=== PATIENT | male | born 1970 ===

== ENCOUNTER 2017-07-07 21:07 | Inpatient (IN) | payer MEDICAID, OTHER ==
[2017-07-07 23:53] LABS: BASO % 0.5 % (0.0-2.0); EOS # 0.2 K/uL (0.0-0.7); EOS % 2.4 % (0.0-4.0); HEMATOCRIT 44.5 % (35.0-51.0); LYMPH # 2.4 K/uL (1.0-4.3); LYMPH % 26.8 % (20.0-40.0); MEAN CORPUSCULAR HEMOGLOBIN 30.4 pg (27.0-31.0); MEAN CORPUSCULAR HGB CONC 33.8 g/dL (33.0-37.0); MEAN PLATELET VOLUME 8.9 fL (7.2-11.7); MONO # 0.3 K/uL (0.0-0.8); MONO % 3.8 % (0.0-10.0); RED CELL DISTRIBUTION WIDTH 13.6 % (11.5-14.5); WHITE BLOOD COUNT 8.8 K/uL (4.8-10.8)
[2017-07-07 23:56] LABS: URINE BILIRUBIN NEGATIVE (NEGATIVE); URINE BLOOD NEGATIVE (NEGATIVE); URINE COLOR Yellow (YELLOW); URINE GLUCOSE (UA) NORMAL (Normal); URINE KETONE NEGATIVE (NEGATIVE); URINE LEUKOCYTE ESTERASE NEG Leu/uL (Negative); URINE PROTEIN NEGATIVE (NEGATIVE); URINE UROBILINOGEN NORMAL mg/dL (0.2-1.0); WBC URINE < 1 /hpf (0-5)
[2017-07-08 00:10] LABS: ALCOHOL SERUM 49 mg/dl (0-10); ALKALINE PHOSPHATASE 95 U/L (38-126); ALT/SGPT 107 U/L (21-72); AST/SGOT 52 U/L (17-59); BILIRUBIN,TOTAL 0.7 mg/dL (0.2-1.3); BLOOD UREA NITROGEN 15 mg/dL (9-20); CALCIUM 8.7 mg/dl (8.6-10.4); CARBON DIOXIDE 24 mmol/L (22-30); CHLORIDE 99 mmol/L (98-107); GFR AFRICAN-AMERICAN > 60; GLUCOSE,RANDOM 96 mg/dL (75-110); POTASSIUM 3.9 mmol/L (3.6-5.2); SODIUM 136 mmol/L (132-148); TOTAL PROTEIN 8.7 g/dL (6.3-8.3)
[2017-07-08 00:23] LABS: ALB/GLOB RATIO 1.2 (1.0-2.1)
--- NOTE | 2017-07-08 01:56 | C.PDOC ---
History Of Present Illness 46 year old male presents to the ER as a prescreen for detox from ETOH, heroin, and xanax, last use was 2 hours ago. Denies physical complaints at this time. Chief Complaint (Nursing): Substance Abuse History Per: Patient History/Exam Limitations: no limitations Onset/Duration Of Symptoms: Days Current Symptoms Are (Timing): Still Present Suicide/Self Injury Attempted (Context): None Modifying Factor(s): Alcohol, Narcotics Associated Symptoms: denies: Depression, Suicidal Thoughts, Suicidal Plan Involuntary Hold By: None Recent travel outside of the [place]: No Past Medical History Reviewed: Historical Data, Nursing Documentation, Vital Signs Vital Signs: Last Vital Signs Temp 98.7 F 07/08/17 01:33 Pulse 92 H 07/08/17 01:33 Resp 22 07/08/17 01:33 BP 128/91 H 07/08/17 01:33 Pulse Ox 98 07/08/17 01:56 - Medical History PMH: Anxiety, HTN Surgical History: No Surg Hx Family History: States: Unknown Family Hx - Social History Hx Alcohol Use: Yes Hx Substance Use: Yes - Immunization History Hx Tetanus Toxoid Vaccination: No Hx Influenza Vaccination: Yes Hx Pneumococcal Vaccination: No Review Of Systems Constitutional: Negative for: Fever, Chills Gastrointestinal: Negative for: Nausea, Vomiting, Diarrhea Physical Exam - Physical Exam Appears: Non-toxic, No Acute Distress Skin: Normal Color, Warm, Dry Head: Atraumatic, Normacephalic Eye(s): bilateral: Normal Inspection Oral Mucosa: Moist Chest: Symmetrical Cardiovascular: Rhythm Regular Respiratory: Normal Breath Sounds, No Rales, No Rhonchi, No Wheezing Gastrointestinal/Abdominal: Soft, No Tenderness Neurological/Psych: Oriented x3, Normal Speech, Other (No focal deficits) ED Course And Treatment - Laboratory Results Result Diagrams: 07/07/17 23:51 07/07/17 23:51 O2 Sat by Pulse Oximetry: 98 (Room air) Pulse Ox Interpretation: Normal Progress Note: Blood work and urinalysis ordered. Crisis notified. Disposition Discussed With : Jh Dean Doctor Will See Patient In The: Hospital Counseled Patient/Family Regarding: Diagnosis - Disposition Disposition: HOSPITALIZED Disposition Time: 01:52 Condition: STABLE - POA Present On Arrival: None - Clinical Impression Clinical Impression: Alcohol use disorder, Opioid abuse - Scribe Statement The provider has reviewed the documentation as recorded by the Scribroshan Raines All medical record entries made by the Patyibroshan were at my direction and personally dictated by me. I have reviewed the chart and agree that the record accurately reflects my personal performance of the history, physical exam, medical decision making, and the department course for this patient. I have also personally directed, reviewed, and agree with the discharge instructions and disposition.
--- NOTE | 2017-07-08 04:37 | PCM.BM ---
<Lenny Lucas - Last Filed: 07/08/17 04:36> Treatment Plan Problems - Problems identified on initial assessmt Alcohol Abuse Date Initiated: 07/08/17 Time Initiated: 03:00 Assessment reference: NA Status: Active Treatment assets and liabiliti Patient Assests: ADL independent, good support system, negotiates basic needs Patient Liabilities: substance abuse (Benzo, heroin, alcohol) - Milieu Protocol Maintain good personal hygiene: daily Encourage regular showers, daily Remind patient to perform daily oral care Conduct patient checks and document Observation sheet: Q15 minutes Maintain personal safety: every shift Educate patient to report safety concerns to staff, every shift Monitor environment for contraband/sharps Medication safety: Monitor for expected outcome, potential side effects: every shift, Assess barriers to learning: every shift, Assess readiness for medication education: every shift <Eusebio Barcenas - Last Filed: 07/08/17 22:52> - Diagnosis (1) Opioid use disorder, severe, dependence Status: Acute Interventions: 07/08/17 22:52 * Assess 7x/week regarding severity of withdrawal * Educate regarding risks, benefits, side effects and alternatives of medications * Use Motivational Interviewing for abstinence * Use CBT for relapse prevention * Medication management for withdrawal symptoms * Encourage medication assisted treatment * (2) Alcohol use disorder Status: Acute Interventions: 07/08/17 22:52 * Assess 7x/week regarding severity of withdrawal * Educate regarding risks, benefits, side effects and alternatives of medications * Use Motivational Interviewing for abstinence * Use CBT for relapse prevention * Medication management for withdrawal symptoms * Encourage medication assisted treatment *
[2017-07-08] MEDS: Multiple Vitamins Tab PO SCH (10:19)
--- NOTE | 2017-07-08 15:46 | PCM.PSYCH ---
Initial Psychiatric Evaluation - Initial Psychiatric Evaluation Type of Admission: Voluntary Legal Status: Capacity Chief Complaint (in patient's own words): "Feeling Good" History of Present Illness and Precipitating Events: Pt is a 46 y/o single male with no children of his own. Pt lives with his girlfriend who has 2 children from another relationship. 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 Pt is here for alcohol and benzodiazepine detox. Pt states that he drinks 1/2 pint of liquor and 2-3 24oz beers daily for the past 2 months. Pt also takes 2-4 mg of Xanax a day for an unspecified amount of time. Pt states that he smokes 10 cigarettes a day and he denied smoking cessation. Pt states that he also uses opioids and he lasted 1g of fentanyl last night and he's been doing that for a couple of years. He experiences withdrawal symptoms when he is not using the fentanyl. However no opioid wdw sxs elicited at this point and he states he gets them late. Past MHX: anxiety, HTN Past Psychiatric HX: denies Family Psychiatric HX: denies Family Substance abuse HX: Uncle "alcoholic" Current Medications: Active Medications Generic Name Dose Route Start Last Admin Trade Name Freq PRN Reason Stop Dose Admin Carvedilol 12.5 mg 07/08/17 10:00 07/08/17 10:18 Coreg PO 12.5 mg BID MAL Administration Chlordiazepoxide 25 mg 07/08/17 10:04 Librium PO Q4H PRN Alcohol Withdrawal Chlordiazepoxide 25 mg 07/08/17 12:00 07/08/17 11:30 Librium PO 07/12/17 11:59 25 mg Q6 MAL Administration Taper Folic Acid 1 mg 07/08/17 10:00 07/08/17 10:19 Folic Acid PO 1 mg DAILY MAL Administration Hydroxyzine HCl 25 mg 07/08/17 03:33 07/08/17 10:18 Atarax PO 25 mg Q6H PRN Administration Anxiety Lisinopril 20 mg 07/08/17 10:00 07/08/17 10:18 Zestril PO 20 mg DAILY MAL Administration Multivitamins 1 tab 07/08/17 10:00 07/08/17 10:19 Hexavitamin PO 1 tab DAILY MAL Administration Nicotine 1 patch 07/08/17 11:30 07/08/17 11:37 Nicoderm Cq TD 1 patch DAILY MAL Administration Pneumococcal Polyvalent Vaccine 0.5 ml 07/10/17 10:00 Pneumovax 23 Vaccine IM 07/10/17 10:01 .ONCE ONE Thiamine HCl 100 mg 07/08/17 10:00 07/08/17 10:19 Vitamin B1 Tab PO 100 mg DAILY MAL Administration Trazodone HCl 50 mg 07/08/17 03:33 Desyrel PO HS PRN Insomnia Past Psychiatric History - Past Psychiatric History Pertinent Medical Hx (Current Medical&Sleep Prob, Allergies): Allergies Allergy/AdvReac Type Severity Reaction Status Date / Time No Known Allergies Allergy Unverified 07/07/17 21:45 Carvedilol 12.5 mg PO BID 07/07/17 Lisinopril 20 mg PO DAILY 07/07/17 Xanax 0.5 mg PO BID 07/07/17 Review of Systems - Neurological Neurological: Weakness - Psychiatric Psychiatric: Abnormal Sleep Pattern, Irritability Mental Status Examination - Personal Presentation Personal Presentation: Looks stated age - Affect Affect: Constricted - Motor Activity Motor Activity: Calm - Reliability in Providing Information Reliability in Providing Information: Good - Speech Speech: Organized - Mood Mood: Depressed - Formal Thought Process Formal Thought Process: No Impairment - Cognitive Functions Orientation: Person, Place, Situation, Time Attention/Concentration: Attentive Judgement: Intact, as evidence by: Insight regarding need for hospitalization Memory: Recent intact, as evidence by: Ability to recall events of the day, Remote intact, as evidenced by: Ability to recall historical events - Risk Risk: Seizure, Withdrawal, Diminished functioning DSM 5 DX - DSM 5 DSM 5 Diagnosis: Alcohol withdrawal Alcohol use d/o- severe Sedative/hypnotic/anxiolytic use d/o-moderate Opioid use d/o-severe - Recommended/Plan of Treatment Treatment Recommendations and Plan of Treatment: Librium detox Meth or SBX detox when he starts to score Gabapentin for augmentation As needed medications Attend groups and activities Supportive therapy and psychoeducation [place] for abstinence CBT for relapse prevention Encourage MAT Refer to rehab or IOP, and self-help groups 33 min Projected ELOS: 4-5 days Prognosis: Good with treatment Discharge Plan and Discharge Criteria: No wdw sxs Refer to IOP - Smoking Cessation Smoking Cessation Initiated: No Reason for not providing: Pt denied
[2017-07-09] MEDS: Multiple Vitamins Tab PO SCH (09:58)
--- NOTE | 2017-07-09 14:04 | PCM.PYCHPN ---
Psychiatric Progress Note - Psychiatric Progress Note Patient seen today, length of contact: 17 min Patient Chief Complaint: "Feeling good, only got up once last night" Problems Identified/Issues Discussed: The pt is seen, chart reviewed, case discussed with staff. Pt stated that he he is experiencing alcohol withdrawal symptoms but no withdrawal symptoms from the fentanyl The pt is compliant with medications and reports no side-effects. Symptoms are improving but needs more time to stabilize. After care discussed, support and psychoeducation given. Pt plans to get in contact with a rehab program in [place] associated with [facility] Medication Change: Yes (detox changes daily) Medical Record Reviewed: Yes Mental Status Examination - Cognitive Function Orientation: Person, Place, Situation, Time Memory: Intact Attention: WNL Concentration: WNL Association: WNL Fund of Knowledge: WNL - Mood Mood: Neutral - Affect Affect: Broad - Speech Speech: Appropriate - Formal Thought Process Formal Thought Process: No Impairment - Suicidal Ideation Suicidal Ideation: No - Homicidal Ideation Homicidal Ideation: No Goal/Treatment Plan - Goal/Treatment Plan Need for Continued Stay: Discharge may exacerbated symptoms, Severe functional impairment Progress Toward Problem(s) and Goals/Treatment Plan: Librium detox Meth or SBX detox when he starts to score Gabapentin for augmentation As needed medications Attend groups and activities Supportive therapy and psychoeducation [place] for abstinence CBT for relapse prevention Encourage MAT Refer to rehab or IOP, and self-help groups Follow up with patient about plan to attend Rehab at [facility] Discuss other options for IOP other than [facility]
[2017-07-10] MEDS: Multiple Vitamins Tab PO SCH (09:44)
[2017-07-10] MEDS ORDERED: Pneumococcal 23-Valent Vaccine IM ONE (10:00)
--- NOTE | 2017-07-10 14:23 | PCM.PYCHPN ---
Psychiatric Progress Note - Psychiatric Progress Note Patient seen today, length of contact: 17 min Patient Chief Complaint: "I feel great and I slept throughout the night" Problems Identified/Issues Discussed: The pt is seen, chart reviewed, case discussed with staff. Pt is not exeriencing any wdw sxs and is in good spirits about getting clean The pt is compliant with medications and reports no side-effects. Symptoms are improving but needs more time to stabilize. After care discussed, support and psychoeducation given. Pt stated that he spoke to [facility] in [place] and plans to go to an IOP there Medication Change: Yes (Librium Taper) Medical Record Reviewed: Yes Mental Status Examination - Cognitive Function Orientation: Person, Place, Situation, Time Memory: Intact Attention: WNL Concentration: WNL Association: WNL Fund of Knowledge: WNL - Mood Mood: Neutral - Affect Affect: Broad - Speech Speech: Appropriate - Formal Thought Process Formal Thought Process: No Impairment - Suicidal Ideation Suicidal Ideation: No - Homicidal Ideation Homicidal Ideation: No Goal/Treatment Plan - Goal/Treatment Plan Need for Continued Stay: Discharge may exacerbated symptoms, Severe functional impairment Progress Toward Problem(s) and Goals/Treatment Plan: Librium detox Meth or SBX detox when he starts to score Gabapentin for augmentation As needed medications Attend groups and activities Supportive therapy and psychoeducation [place] for abstinence CBT for relapse prevention Encourage MAT Refer to rehab or IOP, and self-help groups Pt spoke to [facility] and plans to attend an IOP in the area FOllow-up with the patient about his D/C plan and Transportation
[2017-07-10 19:51] VITALS: O2SAT 99
[2017-07-10] MEDS ORDERED: Aluminum Hydroxide/Magnesium Hydroxide Susp (30 mL) PO PRN (22:01)
--- NOTE | 2017-07-11 07:29 | PCM.PYCHPN ---
Psychiatric Progress Note - Psychiatric Progress Note Patient seen today, length of contact: 17 min Medication Change: Yes (Librium Taper) Medical Record Reviewed: Yes Mental Status Examination - Cognitive Function Orientation: Person, Place, Situation, Time Memory: Intact Attention: WNL Concentration: WNL Association: WNL Fund of Knowledge: WNL - Mood Mood: Neutral - Affect Affect: Broad - Speech Speech: Appropriate - Formal Thought Process Formal Thought Process: No Impairment - Suicidal Ideation Suicidal Ideation: No - Homicidal Ideation Homicidal Ideation: No Goal/Treatment Plan - Goal/Treatment Plan Need for Continued Stay: Discharge may exacerbated symptoms, Severe functional impairment
--- NOTE | 2017-07-11 08:04 | PCM.PYCHDC ---
Mental Status Examination - Mental Status Examination Orientation: Person, Place, Situation, Time Memory: Intact Mood: Neutral Affect: Constricted Speech: Soft Attention: WNL Concentration: WNL Association: WNL Fund of Knowledge: WNL Formal Thought Process: No Impairment Description of patient's judgement and insight: good, fair Psychotic Thoughts and Behaviors: denies any AVH Suicidal Ideation: No Current Homicidal Ideation?: No Discharge Summary - Discharge Note Reason for Hospitalization: Pt is a 46 y/o single male with no children of his own. Pt lives with his girlfriend who has 2 children from another relationship. 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 Pt is here for alcohol and benzodiazepine detox. Pt states that he drinks 1/2 pint of liquor and 2-3 24oz beers daily for the past 2 months. Pt also takes 2-4 mg of Xanax a day for an unspecified amount of time. Pt states that he smokes 10 cigarettes a day and he denied smoking cessation. Pt states that he also uses opioids and he lasted 1g of fentanyl last night and he's been doing that for a couple of years. He experiences withdrawal symptoms when he is not using the fentanyl. However no opioid wdw sxs elicited at this point and he states he gets them late. Consultations:: List each consultation separately and include: 1. Reason for request. 2. Findings. 3. Follow-up Summary of Hospital Course include:: 1. Description of specific treatment plan utilized for patients during their course of treatmen. 2. Summarize the time- course for resolution of acute symptoms and/or regressed behaviors. 3. Describe issues identified and worked on during hospitalization. 4. Describe medication utilized. 5. Describe medical problems identified and treated. 6. Reassessment of suicide risk - Final Diagnosis (DSM 5) Condition upon Discharge: STABLE DSM 5: Alcohol withdrawal Alcohol use d/o- severe Sedative/hypnotic/anxiolytic use d/o-moderate Opioid use d/o-severe Disposition: HOME/ ROUTINE Prescriptions/Medication Reconciliation: Gabapentin [Neurontin] 300 mg PO BID #60 cap traZODone [Desyrel] 50 mg PO HS PRN #30 tab PRN Reason: Insomnia
[2017-07-11] MEDS: Multiple Vitamins Tab PO SCH (09:11)
[2017-07-11 09:14] VITALS: BP 122/84
[2017-07-11 11:41] VITALS: PULSE 64; RESP 19; TEMP 99.8
== END 2017-07-11 11:00 | disposition home or self-care (01) | DRG 745 ==
LOC: C.ER 21:07 → C.7D 07-08 01:56
PROVIDERS: ADMIT Psychiatry & Neurology Psychiatry; ATTEND Psychiatry & Neurology Psychiatry
PROC: HZ2ZZZZ Detoxification Services for Substance Abuse Treatment (ICD-10-PCS; principal; 2017-07-08)
PROC: HZ46ZZZ Group Counseling for Substance Abuse Treatment, Psychoeducation (ICD-10-PCS; 2017-07-08)
PROC: HZ59ZZZ Individual Psychotherapy for Substance Abuse Treatment, Supportive (ICD-10-PCS; 2017-07-08)
DX: F10.230 Alcohol dependence with withdrawal, uncomplicated (principal); F11.20 Opioid dependence, uncomplicated; F41.9 Anxiety disorder, unspecified; I10 Essential (primary) hypertension; F13.10 Sedative, hypnotic or anxiolytic abuse, uncomplicated; F17.210 Nicotine dependence, cigarettes, uncomplicated

== ENCOUNTER 2018-08-28 14:23 | Inpatient (IN) | payer MEDICAID, OTHER ==
[2018-08-28 15:00] LABS: BASO # 0.1 K/uL (0.0-0.2); BASO % 1.4 % (0.0-2.0); EOS # 0.4 K/uL (0.0-0.7); EOS % 6.4 % (0.0-4.0); LYMPH # 1.5 K/uL (1.0-4.3); LYMPH % 26.7 % (20.0-40.0); MEAN CELL VOLUME 95.3 fL (80.0-94.0); MEAN CORPUSCULAR HGB CONC 34.6 g/dL (33.0-37.0); MEAN PLATELET VOLUME 7.7 fL (7.2-11.7); MONO # 0.4 K/uL (0.0-0.8); MONO % 7.4 % (0.0-10.0); NEUT # 3.2 K/uL (1.8-7.0); NEUT % 58.1 % (50.0-75.0); NRBC % 0.1 % (0.0-2.0); RBC 4.25 Mil/uL (4.40-5.90); RED CELL DISTRIBUTION WIDTH 15.8 % (11.5-14.5); WHITE BLOOD COUNT 5.5 K/uL (4.8-10.8)
[2018-08-28 15:18] LABS: ALB/GLOB RATIO 1.4 (1.0-2.1); ALBUMIN 4.7 g/dL (3.5-5.0); ALT/SGPT 126 U/L (21-72); AST/SGOT 160 U/L (17-59); BLOOD UREA NITROGEN 13 mg/dL (9-20); CALCIUM 8.9 mg/dl (8.6-10.4); GFR NON-AFRICAN AMERICAN > 60
--- NOTE | 2018-08-28 16:09 | C.PDOC ---
History Of Present Illness 47 year old male with a history of hypertension presents to the ED for pre- screen for detox from fentany, ETOH, and xanax. The patient reports his last detox attempt was in 2016. Admits his last use of fentanyl was last night and la st ETOH consumption was today in the morning. He is intermittently compliant with his hypertension medication. Offers no medical complaints at this time. Denies fever, chills, and any other associated symptoms. Time Seen by Provider: 08/28/18 14:26 Chief Complaint (Nursing): Substance Abuse History Per: Patient History/Exam Limitations: no limitations Recent travel outside of the [place]: No Past Medical History Reviewed: Historical Data, Nursing Documentation, Vital Signs Vital Signs: Last Vital Signs Temp 98.5 F 08/28/18 14:31 Pulse 91 H 08/28/18 14:31 Resp 16 08/28/18 14:31 BP 146/91 H 08/28/18 14:31 Pulse Ox 96 08/28/18 14:31 - Medical History PMH: Anxiety, HTN Denies: Diabetes, Hepatitis, HIV, Seizures, Sexually Transmitted Disease - [facility] Procedures DETOXIFICATION SERVICES FOR SUBSTANCE ABUSE TREATMENT (07/08/17) GROUP MANAGER CRITICAL CARE FOR SUBSTANCE ABUSE TREATMENT, PSYCHOEDUCATION (07/08/17) INDIV PSYCHOTHERAPY FOR SUBSTANCE ABUSE TREATMENT, SUPPORT (07/08/17) Family History: States: Unknown Family Hx - Social History Hx Alcohol Use: Yes Hx Substance Use: Yes - Immunization History Hx Tetanus Toxoid Vaccination: No Hx Influenza Vaccination: Yes Hx Pneumococcal Vaccination: No Review Of Systems Except As Marked, All Systems Reviewed And Found Negative. Constitutional: Positive for: Other (detox). Negative for: Fever, Chills Physical Exam - Physical Exam Appears: No Acute Distress, Other (ambulatory. ) Skin: Normal Color, Warm, Dry Head: Atraumatic, Normacephalic Eye(s): bilateral: Normal Inspection Oral Mucosa: Moist Chest: Symmetrical Cardiovascular: Rhythm Regular, No Murmur Respiratory: Normal Breath Sounds, No Rales, No Rhonchi, No Wheezing Gastrointestinal/Abdominal: Normal Exam, Soft, No Tenderness Extremity: Bilateral: Atraumatic, Normal Color And Temperature, Normal ROM Neurological/Psych: Oriented x3, No Normal Speech (slurred speech.), Normal Cognition ED Course And Treatment - Laboratory Results Result Diagrams: 08/28/18 14:57 08/28/18 14:57 Lab Results: Total Bilirubin 0.7 mg/dL (0.2-1.3) 08/28/18 14:57 AST 160 U/L (17-59) H D 08/28/18 14:57 ALT 126 U/L (21-72) H 08/28/18 14:57 Alkaline Phosphatase 246 U/L (38-126) H D 08/28/18 14:57 Total Protein 8.0 g/dL (6.3-8.3) 08/28/18 14:57 Albumin 4.7 g/dL (3.5-5.0) 08/28/18 14:57 Globulin 3.3 gm/dL (2.2-3.9) 08/28/18 14:57 Albumin/Globulin Ratio 1.4 (1.0-2.1) 08/28/18 14:57 Lab Interpretation: Abnormal (Elevated LFTs, ETOH 260, UDS + benzos, cannabis) O2 Sat by Pulse Oximetry: 96 (RA) Pulse Ox Interpretation: Normal Progress Note: Patient is medically cleared for detox admission. Medical Decision Making Medical Decision Making: Initial plan: -Blood sent. -Urinalysis. Disposition - Disposition Disposition: HOSPITALIZED Disposition Time: 18:38 Condition: STABLE - POA Present On Arrival: None - Clinical Impression Clinical Impression: Opioid use disorder, severe, dependence, Alcohol use disorder - Scribe Statement The provider has reviewed the documentation as recorded by the Scribe (Nevaeh Hernandez) Provider Attestation: All medical record entries made by the Scribe were at my direction and personally dictated by me. I have reviewed the chart and agree that the record accurately reflects my personal performance of the history, physical exam, medical decision making, and the department course for this patient. I have also personally directed, reviewed, and agree with the discharge instructions and disposition.
[2018-08-28 16:32] LABS: URINE BILIRUBIN NEGATIVE (NEGATIVE); URINE BLOOD NEGATIVE (NEGATIVE); URINE CLARITY Clear (Clear); URINE COLOR Straw (YELLOW); URINE GLUCOSE (UA) NORMAL (Normal); URINE LEUKOCYTE ESTERASE NEG Leu/uL (Negative); URINE PROTEIN NEGATIVE (NEGATIVE); URINE UROBILINOGEN NORMAL mg/dL (0.2-1.0)
[2018-08-28 16:47] LABS: BARBITURATES, UR NEGATIVE (NEGATIVE); OPIATES, UR NEGATIVE (NEGATIVE); PHENCYCLIDINE, UR NEGATIVE (NEGATIVE)
[2018-08-28 16:48] LABS: BENZODIAZEPINES, UR POSITIVE (NEGATIVE)
--- NOTE | 2018-08-28 18:58 | PCM.BM ---
<Jessica Paul - Last Filed: 08/28/18 18:57> Treatment Plan Problems - Problems identified on initial assessmt low self esteem Date Initiated: 08/28/18 Time Initiated: 18:58 Assessment reference: NA Status: Active low modivation to change Date Initiated: 08/28/18 Time Initiated: 18:58 Assessment reference: NA Status: Active denial Date Initiated: 08/28/18 Time Initiated: 18:58 Assessment reference: NA Status: Active Treatment assets and liabiliti Patient Assests: ADL independent, good support system, negotiates basic needs <Eusebio Barcenas - Last Filed: 08/31/18 13:10> - Diagnosis (1) Alcohol use disorder Status: Acute Interventions: 08/30/18 13:10 * Assess 7x/week regarding severity of withdrawal * Educate regarding risks, benefits, side effects and alternatives of medications * Use Motivational Interviewing for abstinence * Use CBT for relapse prevention * Medication management for withdrawal symptoms * Encourage medication assisted treatment * (2) Opioid use disorder, severe, dependence Status: Acute Interventions: 08/30/18 13:10 * Assess 7x/week regarding severity of withdrawal * Educate regarding risks, benefits, side effects and alternatives of medications * Use Motivational Interviewing for abstinence * Use CBT for relapse prevention * Medication management for withdrawal symptoms * Encourage medication assisted treatment * <Kiley Tenorio - Last Filed: 08/31/18 14:57> Family Contact Family involvement: Famliy/SO not involved - Goals for Treatment Patient goals for treatment: Complete detox and transition to MAT with oral Naltrexone. Discharge/Continuing Care - Education Needs Education Needs: Patient Medication, Patient Diagnosis/Disease Process, Patient Coping Skills, Patient Anger Management skills, Patient Placement options, Patient Community resources - Discharge Discharge Criteria: No longer exhibiting s/s of withdrawal, Reduction of target symptoms Discharge to:: Home - Treatment Team Participation Patient/Family/SO Statement: 08/31/18 14:57 "I don't want the Naltrexone shot but I'll try the pill." Discussed with Family/SO: No Was Patient/Family/SO present at Treatment Team Meeting: Yes
[2018-08-29] MEDS: Multiple Vitamins Tab PO SCH (10:02)
--- NOTE | 2018-08-29 13:29 | PCM.PSYCH ---
Initial Psychiatric Evaluation - Initial Psychiatric Evaluation Type of Admission: Voluntary Legal Status: Capacity Chief Complaint (in patient's own words): I am drinking a lot. 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 Patient denies any past history of any inpatient psychiatric hospitalizations, however he reports history of few detoxes in the past. As per the patient, his last detox was at [facility] in 2017. After that he remained sober for a few months but then he relapsed. He reports a long history of drinking and abusing fentanyl. He reports that he is drinking up to 1 liter of vodka daily. His last drink was yesterday. He also reports of abusing up to 1 g of fentanyl daily, last abuse was more than a day ago. Also reports of using Xanax up to 2 mg daily last abuse was more than a day ago. Patient reports withdrawal symptoms including anxiety, headaches, and sweating. He reports irritable mood but denies any feelings of hopelessness or helplessness. He denies any suicidal ideation or any homicidal ideation. He denies any auditory or visual hallucinations or any paranoia. Past medical history HTN, heart disease? Current Medications: Active Medications Generic Name Dose Route Start Last Admin Trade Name Freq PRN Reason Stop Dose Admin Clonidine HCl 0.1 mg 08/28/18 19:28 Catapres PO Q4H PRN Symptoms of alcohol withdrawl Folic Acid 1 mg 08/29/18 10:00 08/29/18 10:02 Folic Acid PO 1 mg DAILY MAL Administration Lorazepam 2 mg 08/28/18 19:30 08/29/18 12:53 Ativan PO 09/02/18 19:29 Not Given Q4 MAL Taper Lorazepam 1 mg 08/28/18 19:28 08/28/18 22:20 Ativan PO 1 mg Q4H PRN Administration Symptoms of alcohol withdrawl Multivitamins 1 tab 08/29/18 10:00 08/29/18 10:02 Hexavitamin PO 1 tab DAILY MAL Administration Thiamine HCl 100 mg 08/29/18 10:00 08/29/18 10:02 Vitamin B1 Tab PO 100 mg DAILY MAL Administration Trazodone HCl 50 mg 08/28/18 19:28 08/28/18 21:55 Desyrel PO 50 mg HS PRN Administration Insomnia Past Psychiatric History - Past Psychiatric History Previous Treatment History: Inpatient Pertinent Medical Hx (Current Medical&Sleep Prob, Allergies): Allergies Allergy/AdvReac Type Severity Reaction Status Date / Time No Known Allergies Allergy Verified 08/29/18 02:14 Carvedilol [Coreg] 12.5 mg PO BID tab 07/10/17 Gabapentin [Neurontin] 300 mg PO BID #60 cap 07/10/17 Lisinopril [Zestril] 20 mg PO DAILY tab 07/10/17 traZODone [Desyrel] 50 mg PO HS PRN #30 tab 07/10/17 Review of Systems - Review of Systems All systems: reviewed and no additional remarkable complaints except - Psychiatric Psychiatric: Anxiety, Irritability. absent: Suicidal Ideation Mental Status Examination - Personal Presentation Personal Presentation: Looks stated age - Affect Affect: Constricted - Motor Activity Motor Activity: Calm - Reliability in Providing Information Reliability in Providing Information: Fair - Speech Speech: Organized - Mood Mood: Anxious - Formal Thought Process Formal Thought Process: No Impairment - Obsessions/Compulsions Obsessions: No Compulsions: No (Review of the) - Cognitive Functions Orientation: Person, Place, Situation, Time Sensorium: Alert Attention/Concentration: Attentive Abstract Thinking: [place] Estimate of Intelligence: Below average Judgement: Imparied, as evidence by: Poor judgement, Intact, as evidence by: Insight regarding need for hospitalization - Risk Risk: Withdrawal, Diminished functioning - Strength & Assets Inventory Strength & Assets Inventory: Family support DSM 5 DX - DSM 5 DSM 5 Diagnosis: Alcohol use disorder severe Alcohol withdrawal Opioid use disorder severe Opioid withdrawal Depressive disorder - Recommended/Plan of Treatment Treatment Recommendations and Plan of Treatment: Alcohol use disorder severe Alcohol withdrawal Opioid use disorder severe Opioid withdrawal Depressive disorder Psychoeducation Supportive therapy and group therapy Ativan taper -due to high LFTs Neurontin 300 mg p.o. 2 times daily Lisinopril 20 mg p.o. daily Trazodone 50 mg p.o. nightly Carvedilol 12.5 mg p.o. twice a day Withdrawal medications - Smoking Cessation Smoking Cessation Initiated: No
[2018-08-30] MEDS: Multiple Vitamins Tab PO SCH (09:34)
--- NOTE | 2018-08-30 10:23 | PCM.PYCHPN ---
Psychiatric Progress Note - Psychiatric Progress Note Patient seen today, length of contact: 18 min Patient Chief Complaint: "I'm starting to withdraw soon" Problems Identified/Issues Discussed: The pt is seen, chart reviewed, case discussed with staff. The pt is compliant with medications and reports no side-effects. Symptoms are improving but needs more time to stabilize. Pt attends groups and activities. Support given, psycho-education provided. After care discussed. Medication Change: Yes (detox changes daily) Medical Record Reviewed: Yes Mental Status Examination - Cognitive Function Orientation: Person, Place, Situation, Time Memory: Intact Attention: WNL Concentration: Poor Association: WNL Fund of Knowledge: WNL - Mood Mood: Anxious - Affect Affect: Constricted - Speech Speech: Appropriate - Formal Thought Process Formal Thought Process: No Impairment - Suicidal Ideation Suicidal Ideation: No - Homicidal Ideation Homicidal Ideation: No Goal/Treatment Plan - Goal/Treatment Plan Need for Continued Stay: Discharge may exacerbated symptoms, Severe functional impairment Progress Toward Problem(s) and Goals/Treatment Plan: Start methadone when he is more in withdrawal - Has been using Fentanyl and gets into wdw "late" he says Continue medications Support and psychoeducation daily Attend groups and activities daily After care planning by counselors
[2018-08-31] MEDS: Multiple Vitamins Tab PO SCH (09:35)
--- NOTE | 2018-08-31 13:48 | PCM.PYCHPN ---
Psychiatric Progress Note - Psychiatric Progress Note Patient seen today, length of contact: 15 min Patient Chief Complaint: "I'm withdrawing" Problems Identified/Issues Discussed: The pt is seen, chart reviewed, case discussed with staff. Pt still complains of withdrawal symptoms and reports that he is feeling down, however he does state he is doing much better than he was since arrival. He was given methadone 10 mg today. He was using Fentanyl and even kratom which don't show in urine. COWS was 10 Support and psychoeducation given, CBT and SC used briefly No new symptoms reported, improving slowly and needs more time No SEs from medications, risks discussed. After care discussed Medication Change: Yes (detox changes daily) Medical Record Reviewed: Yes Mental Status Examination - Cognitive Function Orientation: Person, Place, Situation, Time Memory: Intact Attention: WNL Concentration: Poor Association: WNL Fund of Knowledge: WNL - Mood Mood: Anxious - Affect Affect: Constricted - Speech Speech: Appropriate - Formal Thought Process Formal Thought Process: No Impairment - Suicidal Ideation Suicidal Ideation: No - Homicidal Ideation Homicidal Ideation: No Goal/Treatment Plan - Goal/Treatment Plan Need for Continued Stay: Discharge may exacerbated symptoms, Severe functional impairment Progress Toward Problem(s) and Goals/Treatment Plan: Continue medications, incl methadone Support and psychoeducation daily Attend groups and activities daily After care planning by counselors
[2018-09-01] MEDS: Multiple Vitamins Tab PO SCH (09:49)
[2018-09-01 11:17] VITALS: RESP 18
--- NOTE | 2018-09-01 13:45 | PCM.PYCHPN ---
Psychiatric Progress Note - Psychiatric Progress Note Patient seen today, length of contact: 15 min Patient Chief Complaint: "I'm a little better" Problems Identified/Issues Discussed: The pt is seen, chart reviewed, case is discussed with staff. Support and psychoeducation given, CBT and PA used briefly The pt is improving slowly but needs more time due to severity of symptoms and relapse risk. No SEs from medications, risks discussed. After care discussed Medication Change: Yes (detox changes daily) Medical Record Reviewed: Yes Mental Status Examination - Cognitive Function Orientation: Person, Place, Situation, Time Memory: Intact Attention: WNL Concentration: Poor Association: WNL Fund of Knowledge: WNL - Mood Mood: Anxious - Affect Affect: Constricted - Speech Speech: Appropriate - Formal Thought Process Formal Thought Process: No Impairment - Suicidal Ideation Suicidal Ideation: No - Homicidal Ideation Homicidal Ideation: No Goal/Treatment Plan - Goal/Treatment Plan Need for Continued Stay: Discharge may exacerbated symptoms, Severe functional impairment Progress Toward Problem(s) and Goals/Treatment Plan: Continue medications, incl methadone Support and psychoeducation daily Attend groups and activities daily After care planning by counselors Estimated Date of D/C: 09/02/18
[2018-09-02 05:20] VITALS: O2SAT 97
[2018-09-02] MEDS: Multiple Vitamins Tab PO SCH (10:03)
[2018-09-02 10:05] VITALS: BP 129/90
[2018-09-02 10:34] VITALS: PULSE 90; TEMP 97.6
--- NOTE | 2018-09-02 11:37 | PCM.PYCHDC ---
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 Patient denies any past history of any inpatient psychiatric hospitalizations, however he reports history of few detoxes in the past. As per the patient, his last detox was at [facility] in 2017. After that he remained sober for a few months but then he relapsed. He reports a long history of drinking and abusing fentanyl. He reports that he is drinking up to 1 liter of vodka daily. His last drink was yesterday. He also reports of abusing up to 1 g of fentanyl daily, last abuse was more than a day ago. Also reports of using Xanax up to 2 mg daily last abuse was more than a day ago. Patient reports withdrawal symptoms including anxiety, headaches, and sweating. He reports irritable mood but denies any feelings of hopelessness or helplessness. He denies any suicidal ideation or any homicidal ideation. He denies any auditory or visual hallucinations or any paranoia. Consultations:: List each consultation separately and include: 1. Reason for request. 2. Findings. 3. Follow-up Summary of Hospital Course include:: 1. Description of specific treatment plan utilized for patients during their course of treatmen. 2. Summarize the time- course for resolution of acute symptoms and/or regressed behaviors. 3. Describe issues identified and worked on during hospitalization. 4. Describe medication utilized. 5. Describe medical problems identified and treated. 6. Reassessment of suicide risk Summary of Hospital Course: During the course of his stay, patient (pt) started progressively improving and no longer remained irritable, and anxious. His mood and anxiety were improved and he started attending groups and meetings and started socializing. Patient denied any feelings of hopelessness, helplessness, and worthlessness, denied any problem with the sleep or appetite, denied suicidal ideation or homicidal ideation. Pt denied any auditory or visual hallucinations. He denied any withdrawal symptoms. Pt was treated with medications along with supportive therapy, milieu therapy and group therapy. Some changes were made in his current medications and patient was discharged on following medications. He tolerated these medications very well and denied any side effects. - Final Diagnosis (DSM 5) Condition upon Discharge: STABLE DSM 5: Alcohol use disorder severe Alcohol withdrawal Opioid use disorder severe Opioid withdrawal Depressive disorder Disposition: HOME/ ROUTINE Follow-up Treatment Plan: Education: Pt was educated and counseled about the risks and benefits of taking and not taking medications. Pt was educated and counseled about the risks of drinking and abusing drugs. Pt was educated and counseled to go to the ER or call 911 if pt develop suicidal ideation or homicidal ideation, worsening of symptoms or severe side effects of the meds. Prescriptions/Medication Reconciliation: Carvedilol [Coreg] 12.5 mg PO BID #60 tab Gabapentin [Neurontin] 300 mg PO TID #90 cap hydrOXYzine HCl [Atarax] 50 mg PO BID PRN #60 tab PRN Reason: Anxiety Lisinopril [Zestril] 20 mg PO DAILY #30 tab QUEtiapine [Seroquel] 100 mg PO HS #30 tab - Smoking Cessation Smoking Cessation Medication prescribed: No - Antipsychotic Medications Pt discharged on 2 or more routine antipsychotic medications: No
== END 2018-09-02 12:15 | disposition home or self-care (01) | DRG 745 ==
LOC: C.ER 14:23 → C.9E 18:37 → C.7D 18:46
PROVIDERS: ADMIT Psychiatry & Neurology Psychiatry; ATTEND Psychiatry & Neurology Psychiatry
PROC: HZ2ZZZZ Detoxification Services for Substance Abuse Treatment (ICD-10-PCS; principal; 2018-08-28)
PROC: HZ59ZZZ Individual Psychotherapy for Substance Abuse Treatment, Supportive (ICD-10-PCS; 2018-08-28)
PROC: GZ3ZZZZ Medication Management (ICD-10-PCS; 2018-08-28)
PROC: HZ46ZZZ Group Counseling for Substance Abuse Treatment, Psychoeducation (ICD-10-PCS; 2018-08-28)
DX: F10.230 Alcohol dependence with withdrawal, uncomplicated (principal); F11.23 Opioid dependence with withdrawal; F32.9 Major depressive disorder, single episode, unspecified; F41.9 Anxiety disorder, unspecified; I10 Essential (primary) hypertension

== ENCOUNTER 2018-10-05 18:19 | Inpatient (IN) | payer OTHER ==
--- NOTE | 2018-10-05 19:06 | C.PDOC ---
History Of Present Illness 47 y/o male presents to the ED requesting detox. Admits to using fentanyl, xanax, and alcohol. Last drink was this afternoon, last fentanyl and xanax this morning. Patient denies any fever or other complaints. He also denies any SI or HI. Time Seen by Provider: 10/05/18 18:41 Chief Complaint (Nursing): Substance Abuse History Per: Patient History/Exam Limitations: no limitations Onset/Duration Of Symptoms: Days Current Symptoms Are (Timing): Still Present Suicide/Self Injury Attempted (Context): None Modifying Factor(s): Alcohol, Other (Fentanyl, Xanax) Associated Symptoms: denies: Suicidal Thoughts, Suicidal Plan Past Medical History Reviewed: Historical Data, Nursing Documentation, Vital Signs Vital Signs: Last Vital Signs Temp 98.4 F 10/05/18 18:21 Pulse 113 H 10/05/18 18:21 Resp 20 10/05/18 18:21 BP 157/108 H 10/05/18 18:21 Pulse Ox 97 10/05/18 18:21 - Medical History PMH: Anxiety, Depression, HTN Denies: Diabetes, Hepatitis, HIV, Seizures, Sexually Transmitted Disease - [facility] Procedures DETOXIFICATION SERVICES FOR SUBSTANCE ABUSE TREATMENT (08/28/18) GROUP INSPECTOR WATCH TRAIN FOR SUBSTANCE ABUSE TREATMENT, PSYCHOEDUCATION (08/28/18) INDIV PSYCHOTHERAPY FOR SUBSTANCE ABUSE TREATMENT, SUPPORT (08/28/18) MEDICATION MANAGEMENT (08/28/18) Family History: States: Unknown Family Hx - Social History Hx Alcohol Use: Yes Hx Substance Use: Yes - Immunization History Hx Tetanus Toxoid Vaccination: No Hx Influenza Vaccination: Yes (07/2018) Hx Pneumococcal Vaccination: No Review Of Systems Except As Marked, All Systems Reviewed And Found Negative. Constitutional: Negative for: Fever, Chills Cardiovascular: Negative for: Chest Pain Respiratory: Negative for: Shortness of Breath Gastrointestinal: Negative for: Vomiting, Abdominal Pain Musculoskeletal: Negative for: Back Pain, Other (Tremors) Neurological: Negative for: Weakness, Numbness Psych: Positive for: Other (Substance abuse, Alcohol abuse). Negative for: Suicidal ideation (or homicidal) Physical Exam - Physical Exam Appears: Non-toxic, No Acute Distress Skin: Normal Color, Warm Head: Atraumatic, Normacephalic Eye(s): bilateral: Normal Inspection, PERRL, EOMI Neck: Normal ROM Chest: Symmetrical Cardiovascular: Rhythm Regular, No Murmur Respiratory: Normal Breath Sounds, No Accessory Muscle Use Gastrointestinal/Abdominal: Soft, No Tenderness, No Distention Extremity: Bilateral: Atraumatic, Normal Color And Temperature, Other (No tremors noted) Neurological/Psych: Oriented x3, Normal Speech ED Course And Treatment - Laboratory Results Result Diagrams: 10/05/18 19:08 10/05/18 19:08 O2 Sat by Pulse Oximetry: 97 (RA) Pulse Ox Interpretation: Normal Medical Decision Making Medical Decision Making: pending medical clearnace Initial Plan: Labs ordered for medical clearance. Crisis to speak to patient and evaluate for detox. labsshow abnromal lfts suspect 2/2 etoh use. abd soft in er no ttp. medically cleared Disposition - Disposition Disposition: HOSPITALIZED Disposition Time: 12:00 Condition: GOOD - Clinical Impression Clinical Impression: Abnormal LFTs, Alcohol abuse - Scribe Statement The provider has reviewed the documentation as recorded by the Cathryn Mayo Provider Attestation: All medical record entries made by the Patyibroshan were at my direction and personally dictated by me. I have reviewed the chart and agree that the record accurately reflects my personal performance of the history, physical exam, medical decision making, and the department course for this patient. I have also personally directed, reviewed, and agree with the discharge instructions and disposition. Decision To Admit - Pt Status Changed To: Hospital Disposition Of: Inpatient - Admit Certification Admit to Inpatient:: After my assessment, the patient will require hospitalization for at least two midnights. This is because of the severity of symptoms shown, intensity of services needed, and/or the medical risk in this patient being treated as an outpatient. - InPatient: Physician Admission Certification: I certify that this patient requires 2 or more midnights of care for the following reason:: needs detox - . Bed Request Type: Detox Admitting Physician: Eusebio Barcenas Patient Diagnosis: Abnormal LFTs, Alcohol abuse
[2018-10-05 19:11] LABS: BASO % 0.9 % (0.0-2.0); EOS # 0.1 K/uL (0.0-0.7); EOS % 0.9 % (0.0-4.0); HEMOGLOBIN 14.2 g/dL (12.0-18.0); LYMPH # 0.8 K/uL (1.0-4.3); LYMPH % 14.9 % (20.0-40.0); MEAN CELL VOLUME 98.3 fL (80.0-94.0); MEAN CORPUSCULAR HEMOGLOBIN 32.6 pg (27.0-31.0); MEAN CORPUSCULAR HGB CONC 33.2 g/dL (33.0-37.0); MEAN PLATELET VOLUME 8.8 fL (7.2-11.7); MONO # 0.5 K/uL (0.0-0.8); MONO % 8.5 % (0.0-10.0); NEUT # 4.2 K/uL (1.8-7.0); NEUT % 74.8 % (50.0-75.0); RBC 4.36 Mil/uL (4.40-5.90); RED CELL DISTRIBUTION WIDTH 15.2 % (11.5-14.5); WHITE BLOOD COUNT 5.6 K/uL (4.8-10.8)
[2018-10-05 19:30] LABS: ALB/GLOB RATIO 1.6 (1.0-2.1); ALBUMIN 5.3 g/dL (3.5-5.0); ALT/SGPT 602 U/L (21-72); AST/SGOT 532 U/L (17-59); BLOOD UREA NITROGEN 12 mg/dL (9-20); CALCIUM 9.6 mg/dl (8.6-10.4); GFR NON-AFRICAN AMERICAN > 60
[2018-10-05 23:19] LABS: URINE BACTERIA OCC (<OCC); URINE BILIRUBIN NEGATIVE (NEGATIVE); URINE BLOOD NEGATIVE (NEGATIVE); URINE CLARITY Hazy (Clear); URINE COLOR Amber (YELLOW); URINE GLUCOSE (UA) NORMAL (Normal); URINE LEUKOCYTE ESTERASE TRACE Leu/uL (Negative); URINE PROTEIN 1+ mg/dL (NEGATIVE)
[2018-10-05 23:27] LABS: BARBITURATES, UR NEGATIVE (NEGATIVE); BENZODIAZEPINES, UR NEGATIVE (NEGATIVE); OPIATES, UR NEGATIVE (NEGATIVE); PHENCYCLIDINE, UR NEGATIVE (NEGATIVE)
--- NOTE | 2018-10-06 01:16 | PCM.BM ---
<Alex Madison - Last Filed: 10/06/18 01:13> Treatment Plan Problems - Problems identified on initial assessmt Abnormal Vital Signs Date Initiated: 10/06/18 Time Initiated: 01:14 Assessment reference: NA Status: Active Chronic Low Self Esteem Date Initiated: 10/06/18 Assessment reference: NA Status: Active Hopelessness Date Initiated: 10/06/18 Assessment reference: NA Status: Active Treatment assets and liabiliti Patient Assests: cooperative, ADL independent, good support system, negotiates basic needs, cognitively intact Patient Liabilities: substance abuse - Milieu Protocol Maintain good personal hygiene: daily Encourage regular showers, daily Remind patient to perform daily oral care, daily Assist patient to perform ADL's Maintain personal safety: every shift Educate patient to report safety concerns to staff, every shift Monitor environment for contraband/sharps Medication safety: Monitor for expected outcome, potential side effects: every shift, Assess barriers to learning: every shift, Assess readiness for medication education: every shift <Kiley Tenorio - Last Filed: 10/07/18 14:24> Family Contact Family involvement: Diazliy/SO not involved - Goals for Treatment Patient goals for treatment: Complete detox and apply for an IOP. Discharge/Continuing Care - Education Needs Education Needs: Patient Medication, Patient Diagnosis/Disease Process, Patient Coping Skills, Patient Anger Management skills, Patient Placement options, Patient Community resources - Discharge Discharge Criteria: No longer exhibiting s/s of withdrawal, Reduction of target symptoms Discharge to:: Home - Treatment Team Participation Patient/Family/SO Statement: 10/07/18 14:24 "[facility] Discussed with Family/SO: No Was Patient/Family/SO present at Treatment Team Meeting: Yes <Eusebio Barcenas - Last Filed: 10/10/18 10:42> - Diagnosis (1) Opioid use disorder, severe, dependence Status: Acute Interventions: 10/07/18 10:42 * Assess 7x/week regarding severity of withdrawal * Educate regarding risks, benefits, side effects and alternatives of medications * Use Motivational Interviewing for abstinence * Use CBT for relapse prevention * Medication management for withdrawal symptoms * Encourage medication assisted treatment *
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
[2018-10-06] MEDS: Multiple Vitamins Tab PO SCH (09:47)
[2018-10-06] MEDS ORDERED: Aluminum Hydroxide/Magnesium Hydroxide Susp (30 mL) PO PRN (15:13)
[2018-10-07] MEDS: Multiple Vitamins Tab PO SCH (10:08)
[2018-10-08 07:57] LABS: ALB/GLOB RATIO 1.7 (1.0-2.1); ALBUMIN 4.6 g/dL (3.5-5.0); ALT/SGPT 274 U/L (21-72); AST/SGOT 131 U/L (17-59); BLOOD UREA NITROGEN 14 mg/dL (9-20); CALCIUM 9.7 mg/dl (8.6-10.4); GFR NON-AFRICAN AMERICAN > 60
[2018-10-08] MEDS: Multiple Vitamins Tab PO SCH (09:33)
--- NOTE | 2018-10-08 13:21 | PCM.PYCHPN ---
Psychiatric Progress Note - Psychiatric Progress Note Patient seen today, length of contact: 17 min Patient Chief Complaint: "Not good" Problems Identified/Issues Discussed: The pt is seen, chart reviewed, case is discussed with staff. The pt is compliant with medications and reports no side-effects. Symptoms are improving but needs more time to stabilize and to avoid relapse. Pt attends groups and activities. Support given, psycho-education provided. After care discussed. Medication Change: Yes (detox changes daily) Medical Record Reviewed: Yes Mental Status Examination - Cognitive Function Orientation: Person, Place, Situation, Time Memory: Intact Attention: WNL Concentration: Poor Association: WNL Fund of Knowledge: WNL - Mood Mood: Depressed, Anxious - Affect Affect: Constricted - Speech Speech: Appropriate - Formal Thought Process Formal Thought Process: No Impairment - Suicidal Ideation Suicidal Ideation: No - Homicidal Ideation Homicidal Ideation: No Goal/Treatment Plan - Goal/Treatment Plan Need for Continued Stay: Discharge may exacerbated symptoms, Severe functional impairment Progress Toward Problem(s) and Goals/Treatment Plan: Taper with Ativan and methadone Gabapentin for augmentation Start Folic Acid, Thiamine, and Multivitamins As needed medications Clonidine, Atarax, and Motrin Continue home med carvedilol for hypertension Trazodone for insomnia All risks, benefits and alternatives of the meds discussed, and the pt agreed and understood. Attend groups and activities Supportive therapy and psychoeducation [place] for abstinence CBT for relapse prevention Encourage MAT Refer to outpatient rehab or IOP, and self-help groups Teach healthy lifestyle methods, i.e. diet, exercise, meditation Smoking cessation with NH
[2018-10-09] MEDS: Multiple Vitamins Tab PO SCH (10:50)
[2018-10-09 16:55] VITALS: O2SAT 97
--- NOTE | 2018-10-09 18:03 | PCM.PYCHPN ---
Psychiatric Progress Note - Psychiatric Progress Note Patient seen today, length of contact: 15 minutes Patient Chief Complaint: I'm feeling better. Problems Identified/Issues Discussed: Patient seen, chart reviewed, case discussed with the staff. Issues related to illness and treatment were discussed with the patient and staff. Compliant with treatment with no adverse affects. Tolerating treatment very well. Mood reported as okay. Affect appropriate. Reported feeling better. Aftercare discussed with the patient. Patient denied any delusions, auditory or visual hallucinations, no suicidal ideations or homicidal ideations at the time of evaluation. Medical Problems: Hypertension Hyperlipidemia Diagnostic Results: Reviewed DSM 5 Symptoms Update: Improving with treatment Medication Change: No Medical Record Reviewed: Yes Mental Status Examination - Cognitive Function Orientation: Person, Place, Situation, Time Memory: Intact Attention: WNL Concentration: WNL Association: WN Fund of Knowledge: [facility] Decription of patient's judgement and insights: Fair - Mood Mood: Neutral - Affect Affect: Other (Appropriate) - Speech Speech: Appropriate - Formal Thought Process Formal Thought Process: No Impairment Psychotic Thoughts and Behaviors: None - Suicidal Ideation Suicidal Ideation: No - Homicidal Ideation Homicidal Ideation: No Goal/Treatment Plan - Goal/Treatment Plan Need for Continued Stay: Remain at risks for inpatient hospitalization, Discharge may exacerbated symptoms, Severe functional impairment Progress Toward Problem(s) and Goals/Treatment Plan: Improving with treatment. Patient education. Supportive therapy. CBT for attest prevention. SD for abstinence. Continue treatment as before. [facility] care after discharge from the hospital. Estimated Date of D/C: 10/10/18 - Smoking Cessation Smoking Cessation Initiated: No
[2018-10-10 09:40] VITALS: BP 141/97; PULSE 83; RESP 18; TEMP 98.4
[2018-10-10] MEDS: Multiple Vitamins Tab PO SCH (10:04)
--- NOTE | 2018-10-10 10:45 | PCM.PYCHPN ---
Psychiatric Progress Note - Psychiatric Progress Note Patient seen today, length of contact: 16 min Patient Chief Complaint: "So so" Problems Identified/Issues Discussed: The pt is seen, chart reviewed, case is discussed with staff. Support and psychoeducation given, CBT and DC used briefly The pt is improving slowly but needs more time due to severity of symptoms and relapse risk. No SEs from medications, risks discussed. After care discussed Medication Change: Yes (detox changes daily) Medical Record Reviewed: Yes Mental Status Examination - Cognitive Function Orientation: Person, Place, Situation, Time Memory: Intact Attention: WNL Concentration: Poor Association: WNL Fund of Knowledge: WNL - Mood Mood: Depressed, Anxious - Affect Affect: Constricted - Speech Speech: Appropriate - Formal Thought Process Formal Thought Process: No Impairment - Suicidal Ideation Suicidal Ideation: No - Homicidal Ideation Homicidal Ideation: No Goal/Treatment Plan - Goal/Treatment Plan Need for Continued Stay: Discharge may exacerbated symptoms, Severe functional impairment Progress Toward Problem(s) and Goals/Treatment Plan: Taper with Ativan and methadone Gabapentin for augmentation Start Folic Acid, Thiamine, and Multivitamins As needed medications Clonidine, Atarax, and Motrin Continue home med carvedilol for hypertension Trazodone for insomnia All risks, benefits and alternatives of the meds discussed, and the pt agreed and understood. Attend groups and activities Supportive therapy and psychoeducation DC for abstinence CBT for relapse prevention Encourage MAT Refer to outpatient rehab or IOP, and self-help groups Teach healthy lifestyle methods, i.e. diet, exercise, meditation Smoking cessation with DC Estimated Date of D/C: 10/10/18
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
== END 2018-10-10 11:15 | disposition home or self-care (01) | DRG 745 ==
LOC: C.ER 18:19 → C.7D 23:24
PROVIDERS: ADMIT Psychiatry & Neurology Psychiatry; ATTEND Psychiatry & Neurology Psychiatry
PROC: HZ2ZZZZ Detoxification Services for Substance Abuse Treatment (ICD-10-PCS; principal; 2018-10-05)
PROC: HZ81ZZZ Medication Management for Substance Abuse Treatment, Methadone Maintenance (ICD-10-PCS; 2018-10-05)
PROC: HZ80ZZZ Medication Management for Substance Abuse Treatment, Nicotine Replacement (ICD-10-PCS; 2018-10-05)
PROC: GZ3ZZZZ Medication Management (ICD-10-PCS; 2018-10-05)
PROC: HZ46ZZZ Group Counseling for Substance Abuse Treatment, Psychoeducation (ICD-10-PCS; 2018-10-05)
PROC: HZ59ZZZ Individual Psychotherapy for Substance Abuse Treatment, Supportive (ICD-10-PCS; 2018-10-05)
DX: F11.23 Opioid dependence with withdrawal (principal); F10.239 Alcohol dependence with withdrawal, unspecified; F17.210 Nicotine dependence, cigarettes, uncomplicated; F32.9 Major depressive disorder, single episode, unspecified; G47.00 Insomnia, unspecified; I10 Essential (primary) hypertension; E78.5 Hyperlipidemia, unspecified

== ENCOUNTER 2018-11-12 18:33 | Inpatient (IN) | payer OTHER ==
--- NOTE | 2018-11-12 19:49 | C.PDOC ---
History Of Present Illness 47 year old male presents to the ED requesting detox for alcohol and heroin abuse. Patient reports his last use of both heroin and alcohol was today [employer]. Patient denies SI/HI, hallucinations, injury, fall, trauma, other medical compl aints at this time. Time Seen by Provider: 11/12/18 19:10 Chief Complaint (Nursing): Substance Abuse History Per: Patient History/Exam Limitations: intoxication Onset/Duration Of Symptoms: Hrs Current Symptoms Are (Timing): Still Present Suicide/Self Injury Attempted (Context): None Modifying Factor(s): Alcohol, Narcotics Associated Symptoms: denies: Depression, Suicidal Thoughts, Suicidal Plan Recent travel outside of the [place]: No Additional History Per: Patient Past Medical History Reviewed: Historical Data, Nursing Documentation, Vital Signs Vital Signs: Last Vital Signs Temp 98.3 F 11/12/18 18:41 Pulse 101 H 11/12/18 18:41 Resp 18 11/12/18 18:41 BP 156/112 H 11/12/18 18:41 Pulse Ox 95 11/12/18 18:41 - Medical History PMH: Anxiety, Depression, HTN Denies: Diabetes, Hepatitis, HIV, Seizures, Sexually Transmitted Disease Surgical History: No Surg Hx - [facility] Procedures DETOXIFICATION SERVICES FOR SUBSTANCE ABUSE TREATMENT (10/05/18) GROUP SURG TECH FOR SUBSTANCE ABUSE TREATMENT, PSYCHOEDUCATION (10/05/18) INDIV PSYCHOTHERAPY FOR SUBSTANCE ABUSE TREATMENT, SUPPORT (10/05/18) MEDICATION MANAGEMENT (10/05/18) MEDS MGMT FOR SUBSTANCE ABUSE TREATMENT, METHADONE MAINT (10/05/18) MEDS MGMT FOR SUBSTANCE ABUSE TREATMENT, NICOTINE REPLACE (10/05/18) Family History: States: Unknown Family Hx - Social History Hx Alcohol Use: Yes Hx Substance Use: Yes - Immunization History Hx Tetanus Toxoid Vaccination: No Hx Influenza Vaccination: Yes Hx Pneumococcal Vaccination: No Review Of Systems Except As Marked, All Systems Reviewed And Found Negative. Cardiovascular: Negative for: Chest Pain Respiratory: Negative for: Shortness of Breath Physical Exam - Physical Exam Additional Physical Exam Comments: Constitutional: No acute distress. Head: Normocephalic. Atraumatic. Eyes: PERRL. ENT: Moist mucous membranes. Neck: Supple. Cardiovascular: Regular rate. Radial pulse 2+ bilaterally. Chest: No tenderness. Respiratory: Clear to auscultation bilaterally. GI: Soft. Nontender. Nondistended. Back: No CVA tenderness. Musculoskeletal: No tenderness or swelling of extremities. Skin: No rash. Neurologic: Alert, no focal deficit. ED Course And Treatment - Laboratory Results Result Diagrams: 11/12/18 19:56 11/12/18 19:56 O2 Sat by Pulse Oximetry: 95 (ON RA) Pulse Ox Interpretation: Normal Medical Decision Making Medical Decision Making: Plan: * Labs * UA * Crisis eval Disposition - Disposition Disposition: HOSPITALIZED Disposition Time: 21:04 Condition: FAIR Forms: [employer] ([place]) - Clinical Impression Clinical Impression: Alcohol use disorder, severe, dependence - Scribe Statement The provider has reviewed the documentation as recorded by the Scribe Carlos Bright All medical record entries made by the Scribe were at my direction and personally dictated by me. I have reviewed the chart and agree that the record accurately reflects my personal performance of the history, physical exam, medical decision making, and the department course for this patient. I have also personally directed, reviewed, and agree with the discharge instructions and disposition.
[2018-11-12 20:00] LABS: BASO # 0.1 K/uL (0.0-0.2); BASO % 1.4 % (0.0-2.0); EOS % 0.9 % (0.0-4.0); HEMOGLOBIN 14.3 g/dL (12.0-18.0); LYMPH # 0.9 K/uL (1.0-4.3); LYMPH % 19.3 % (20.0-40.0); MEAN CELL VOLUME 96.7 fL (80.0-94.0); MEAN CORPUSCULAR HEMOGLOBIN 32.7 pg (27.0-31.0); MEAN CORPUSCULAR HGB CONC 33.8 g/dL (33.0-37.0); MEAN PLATELET VOLUME 8.9 fL (7.2-11.7); MONO # 0.3 K/uL (0.0-0.8); MONO % 7.1 % (0.0-10.0); NEUT # 3.4 K/uL (1.8-7.0); NEUT % 71.3 % (50.0-75.0); RBC 4.38 Mil/uL (4.40-5.90); RED CELL DISTRIBUTION WIDTH 14.2 % (11.5-14.5); WHITE BLOOD COUNT 4.8 K/uL (4.8-10.8)
[2018-11-12 20:15] LABS: ALB/GLOB RATIO 1.4 (1.0-2.1); ALBUMIN 5.1 g/dL (3.5-5.0); ALT/SGPT 542 U/L (21-72); AST/SGOT 607 U/L (17-59); BLOOD UREA NITROGEN 10 mg/dL (9-20); CALCIUM 9.9 mg/dl (8.6-10.4); GFR NON-AFRICAN AMERICAN > 60
[2018-11-12 20:46] LABS: URINE BACTERIA RARE (<OCC); URINE BILIRUBIN NEGATIVE (NEGATIVE); URINE BLOOD 1+ (NEGATIVE); URINE CLARITY Clear (Clear); URINE COLOR Amber (YELLOW); URINE GLUCOSE (UA) NORMAL (Normal); URINE LEUKOCYTE ESTERASE NEG Leu/uL (Negative); URINE PROTEIN NEGATIVE (NEGATIVE)
[2018-11-12 20:55] LABS: BARBITURATES, UR NEGATIVE (NEGATIVE); BENZODIAZEPINES, UR NEGATIVE (NEGATIVE); OPIATES, UR NEGATIVE (NEGATIVE); PHENCYCLIDINE, UR NEGATIVE (NEGATIVE)
--- NOTE | 2018-11-12 22:29 | PCM.BM ---
<Abisai Hines - Last Filed: 11/12/18 22:27> Treatment Plan Problems - Problems identified on initial assessmt KNOWLEDGE DEFICIT:ALCOHOL/OPIATE USE Date Initiated: 11/12/18 Time Initiated: 22:28 Assessment reference: NA Status: Active ANXIETY RELATED TO SUBSTANCE USE Date Initiated: 11/12/18 Time Initiated: 22:29 Assessment reference: NA Status: Active DEFENSIVE COPING Date Initiated: 11/12/18 Time Initiated: 22:30 Assessment reference: NA Status: Active Treatment assets and liabiliti Patient Assests: cooperative, ADL independent, good support system, negotiates basic needs, cognitively intact Patient Liabilities: substance abuse, medical problems - Milieu Protocol Maintain good personal hygiene: daily Encourage regular showers, daily Remind patient to perform daily oral care, daily Assist patient to perform ADL's Conduct patient checks and document Observation sheet: Q15 minutes Maintain personal safety: every shift Educate patient to report safety concerns to staff, every shift Monitor environment for contraband/sharps Medication safety: Monitor for expected outcome, potential side effects: every shift, Assess barriers to learning: every shift, Assess readiness for medication education: every shift <Kiley Tenorio - Last Filed: 11/15/18 13:55> Family Contact Family involvement: Famliy/SO not involved - Goals for Treatment Patient goals for treatment: Complete detox and relocate to [place] with family. Discharge/Continuing Care - Education Needs Education Needs: Patient Medication, Patient Diagnosis/Disease Process, Patient Coping Skills, Patient Anger Management skills, Patient Placement options, Patient Community resources - Discharge Discharge Criteria: No longer exhibiting s/s of withdrawal, Reduction of target symptoms Discharge to:: With Family - Treatment Team Participation Patient/Family/SO Statement: 11/15/18 13:55 "I'm gonna move to my Mom's house, I won't get in trouble there." Discussed with Family/SO: No Was Patient/Family/SO present at Treatment Team Meeting: Yes
[2018-11-12] MEDS ORDERED: Aluminum Hydroxide/Magnesium Hydroxide Susp (30 mL) PO PRN (23:27)
[2018-11-12] MEDS ORDERED: Magnesium Hydroxide Susp 30 ml UD PO PRN (23:27)
--- NOTE | 2018-11-13 11:17 | PCM.PSYCH ---
Initial Psychiatric Evaluation - Initial Psychiatric Evaluation Type of Admission: Voluntary Legal Status: Capacity Chief Complaint (in patient's own words): I was withdrawing badly. History of Present Illness and Precipitating Events: Pt is a 47yr old HM, who lives in a rooming house, came to the [facility] ED to get help with alcohol detox. Patient reports history of few detoxes for alcohol in the past. He was recently discharged from [facility] few months ago. As per the patient soon after discharge, he relapsed on drinking and started drinking heavily. He reports that he is drinking up to a liter of vodka daily. He also reports of abusing Xanax 4 to 6 mg daily. Yesterday he consumed almost 1 L of vodka, started having withdrawal symptoms, so he came to the [facility] to get help. He reports withdrawal symptoms from drinking including nausea, shakes, joint pains, sweating, headache and anxiety. He reports anxiety and irritability, and poor sleep. However he denies any feelings of hopelessness or helplessness. He denies any auditory or visual hallucinations or any paranoia. He denies abusing any other substances. Past medical history HTN Current Medications: Active Medications Generic Name Dose Route Start Last Admin Trade Name Freq PRN Reason Stop Dose Admin Al Hydrox/Mg Hydrox/Simethicone 30 ml 11/12/18 23:27 Maalox 30 Ml PO TID PRN Indigestion / Heartburn Clonidine HCl 0.1 mg 11/12/18 23:33 11/13/18 09:55 Catapres PO 0.1 mg Q4 PRN Administration COWS Score More or Equal to 5 Dicyclomine HCl 10 mg 11/12/18 23:27 11/12/18 23:42 Bentyl PO 10 mg Q6 PRN Administration Muscle spasm Gabapentin 400 mg 11/13/18 10:00 11/13/18 09:54 Neurontin PO 400 mg TID MAL Administration Hydroxyzine HCl 50 mg 11/12/18 23:29 11/13/18 09:55 Atarax PO 50 mg Q6 PRN Administration Anxiety Ibuprofen 600 mg 11/12/18 23:27 Motrin Tab PO Q6 PRN Pain, moderate (4-7) Loperamide HCl 2 mg 11/12/18 23:27 Imodium PO Q8 PRN Diarrhea Magnesium Hydroxide 30 ml 04/05/19 23:27 Milk Of Magnesia PO 11/15/18 10:01 BID PRN Constipation Ondansetron HCl 4 mg 11/12/18 23:27 Zofran Tab PO Q8 PRN Nausea/Vomiting Pneumococcal Polyvalent Vaccine 0.5 ml 11/15/18 10:00 Pneumovax 23 Vaccine IM 11/15/18 10:01 .ONCE ONE Trazodone HCl 100 mg 11/12/18 23:30 11/12/18 23:42 Desyrel PO 100 mg HS PRN Administration Sleep Past Psychiatric History - Past Psychiatric History Previous Treatment History: Inpatient Pertinent Medical Hx (Current Medical&Sleep Prob, Allergies): Allergies Allergy/AdvReac Type Severity Reaction Status Date / Time No Known Allergies Allergy Verified 11/12/18 18:47 traZODone [Desyrel] 50 mg PO HS PRN #30 tab 07/10/17 Carvedilol [Coreg] 12.5 mg PO BID #60 tab 09/01/18 Gabapentin [Neurontin] 300 mg PO TID #90 cap 09/01/18 Lisinopril [Zestril] 20 mg PO DAILY #30 tab 09/01/18 QUEtiapine [Seroquel] 100 mg PO HS #30 tab 09/01/18 hydrOXYzine HCl [Atarax] 50 mg PO BID PRN #60 tab 09/01/18 Carvedilol [Coreg] 12.5 mg PO BID #60 tab 10/08/18 Cyclobenzaprine [Flexeril] 5 mg PO TID PRN #90 tab 10/08/18 Gabapentin [Neurontin] 300 mg PO TID #90 cap 10/08/18 Lisinopril [Zestril] 20 mg PO DAILY #30 tab 10/08/18 QUEtiapine [SEROquel] 50 mg PO HS #30 tab 10/08/18 traZODone [Desyrel] 100 mg PO HS PRN #30 tab 10/08/18 Review of Systems - Review of Systems All systems: reviewed and no additional remarkable complaints except - Psychiatric Psychiatric: Anxiety, Difficulty Concentrating, Irritability Mental Status Examination - Personal Presentation Personal Presentation: Looks stated age - Affect Affect: Constricted - Motor Activity Motor Activity: Calm - Reliability in Providing Information Reliability in Providing Information: Fair - Speech Speech: Organized - Mood Mood: Anxious - Formal Thought Process Formal Thought Process: No Impairment - Obsessions/Compulsions Obsessions: No Compulsions: No - Cognitive Functions Orientation: Person, Place, Situation, Time Sensorium: Alert Attention/Concentration: Attentive Abstract Thinking: Fletcher Estimate of Intelligence: Below average Judgement: Imparied, as evidence by: Poor judgement, Intact, as evidence by: Insight regarding need for hospitalization - Risk Risk: Withdrawal, Diminished functioning - Limitations Limitations: Living alone DSM 5 DX - DSM 5 DSM 5 Diagnosis: Alcohol withdrawal Sedated/hypnotic withdrawal Sedated/hypnotic use disorder severe Alcohol use disorder severe - Recommended/Plan of Treatment Treatment Recommendations and Plan of Treatment: Alcohol withdrawal Sedated/hypnotic withdrawal Sedated/hypnotic use disorder severe Alcohol use disorder severe [place] for abstinence CBT for relapse prevention Encourage MAT Refer to rehab or IOP, and self-help groups Taper with ativan Seroquel for Insomnia Trazodone for insomnia Protonix EC for stomach Gabapentin for augmentation and anxiety As needed medications All risks, benefits and alternatives of the meds discussed, and the pt agreed and understood. Attend groups and activities Supportive therapy and psychoeducation Teach healthy lifestyle methods, i.e. diet, exercise, meditation Smoking cessation with [place] Nicotine patch if needed
[2018-11-13] MEDS: Multiple Vitamins Tab PO SCH (12:20)
[2018-11-14] MEDS: Multiple Vitamins Tab PO SCH (09:46)
--- NOTE | 2018-11-14 15:59 | PCM.PYCHPN ---
Psychiatric Progress Note - Psychiatric Progress Note Patient seen today, length of contact: 15 min Patient Chief Complaint: I was withdrawing badly. Problems Identified/Issues Discussed: Patient seen and evaluated, chart reviewed and discussed with the nurse. As per staff, he is taking medications but denies any effects. Patient reports some improvement in the withdrawal symptoms but still reports anxiety, headaches, cramps, shakes and sweating. He reports anxiety but denies any feelings of hopelessness or helplessness. He denies any denies any manic or psychotic symptom. He denies any suicidal ideation or homicidal ideation. CIWA is still high and patient is high risk for discharge. Symptoms are improving gradually but he needs to stay longer for further stabilization. Supportive therapy and psychoeducation were given Medication Change: Yes Medical Record Reviewed: Yes Mental Status Examination - Cognitive Function Orientation: Person, Place, Situation, Time Memory: Intact Attention: WNL Concentration: Poor Association: WNL Fund of Knowledge: Poor - Mood Mood: Anxious - Affect Affect: Constricted - Speech Speech: Soft - Formal Thought Process Formal Thought Process: No Impairment - Suicidal Ideation Suicidal Ideation: No - Homicidal Ideation Homicidal Ideation: No Goal/Treatment Plan - Goal/Treatment Plan Need for Continued Stay: Severe depression anxiety Progress Toward Problem(s) and Goals/Treatment Plan: Alcohol withdrawal Sedated/hypnotic withdrawal Sedated/hypnotic use disorder severe Alcohol use disorder severe [place] for abstinence CBT for relapse prevention Encourage MAT Refer to rehab or IOP, and self-help groups Taper with ativan Seroquel for Insomnia Trazodone for insomnia Protonix EC for stomach Gabapentin for augmentation and anxiety As needed medications All risks, benefits and alternatives of the meds discussed, and the pt agreed and understood. Attend groups and activities Supportive therapy and psychoeducation Teach healthy lifestyle methods, i.e. diet, exercise, meditation Smoking cessation with [place] Nicotine patch if needed
[2018-11-15] MEDS: Multiple Vitamins Tab PO SCH (09:43)
[2018-11-15] MEDS ORDERED: Pneumococcal 23-Valent Vaccine IM ONE (10:00)
--- NOTE | 2018-11-15 13:32 | PCM.PYCHPN ---
Psychiatric Progress Note - Psychiatric Progress Note Patient seen today, length of contact: 15 min Medication Change: Yes (detox changes daily) Medical Record Reviewed: Yes Mental Status Examination - Cognitive Function Orientation: Person, Place, Situation, Time Memory: Intact Attention: WNL Concentration: Poor Association: WNL Fund of Knowledge: Poor - Mood Mood: Anxious - Affect Affect: Constricted - Speech Speech: Soft - Formal Thought Process Formal Thought Process: No Impairment - Suicidal Ideation Suicidal Ideation: No - Homicidal Ideation Homicidal Ideation: No Goal/Treatment Plan - Goal/Treatment Plan Need for Continued Stay: Severe depression anxiety
[2018-11-16] MEDS: Multiple Vitamins Tab PO SCH (09:27)
--- NOTE | 2018-11-17 08:46 | PCM.PYCHDC ---
Mental Status Examination - Mental Status Examination Orientation: Person Discharge Summary - Discharge Note Consultations:: List each consultation separately and include: 1. Reason for request. 2. Findings. 3. Follow-up Summary of Hospital Course include:: 1. Description of specific treatment plan utilized for patients during their course of treatmen. 2. Summarize the time- course for resolution of acute symptoms and/or regressed behaviors. 3. Describe issues identified and worked on during hospitalization. 4. Describe medication utilized. 5. Describe medical problems identified and treated. 6. Reassessment of suicide risk Summary of Hospital Course: He has decided to move to [facility], where he has friends and a place to stay, within a week. - Final Diagnosis (DSM 5) Condition upon Discharge: FAIR Disposition: HOME/ ROUTINE Prescriptions/Medication Reconciliation: Cyclobenzaprine [Flexeril] 5 mg PO BID #60 tab Folic Acid 1 mg PO DAILY #30 tab Gabapentin [Neurontin] 400 mg PO TID #90 cap Multivitamins [Hexavitamin] 1 tab PO DAILY #30 tab QUEtiapine [SEROquel] 200 mg PO HS #30 tab traZODone [Desyrel] 100 mg PO HS PRN #30 tab PRN Reason: Sleep
[2018-11-17] MEDS: Multiple Vitamins Tab PO SCH (09:37)
[2018-11-17 10:27] VITALS: BP 130/87; PULSE 102; RESP 18; TEMP 98.1; O2SAT 99
== END 2018-11-17 10:00 | disposition home or self-care (01) | DRG 745 ==
LOC: C.ER 18:33 → C.7D 21:34
PROVIDERS: ADMIT Psychiatry & Neurology Psychiatry; ATTEND Psychiatry & Neurology Psychiatry
PROC: GZ56ZZZ Individual Psychotherapy, Supportive (ICD-10-PCS; principal; 2018-11-12)
DX: F10.230 Alcohol dependence with withdrawal, uncomplicated (principal); F11.10 Opioid abuse, uncomplicated; F12.10 Cannabis abuse, uncomplicated; Y90.6 Blood alcohol level of 120-199 mg/100 ml; F13.239 Sedative, hypnotic or anxiolytic dependence with withdrawal, unspecified; F41.9 Anxiety disorder, unspecified; G47.00 Insomnia, unspecified; I10 Essential (primary) hypertension